=== PATIENT | male | born 1970 | race Caucasian/White ===

== ENCOUNTER 2022-06-15 20:00 | Emergency (ER) | payer OTHER, MEDICAID ==
[~2022-06-15] VITALS: Ht 182.9 cm; Wt 77.6 kg
[2022-06-15 20:18] VITALS: BP 128/77
--- NOTE | 2022-06-15 20:21 | NUR ---
PT TAKEN TO LOBBY.
[2022-06-15] MEDS ORDERED: IBUP-1878 PO (23:25)
[2022-06-15] MEDS ORDERED: HYDR-5080 PO (23:26)
[2022-06-16 00:10] VITALS: BP 120/80
--- NOTE | 2022-06-16 00:10 | NUR ---
Patient discharged with v/s stable. Written and verbal after care instructions given and explained. Patient alert, oriented and verbalized understanding of instructions. Ambulatory with steady gait. All questions addressed prior to discharge. ID band removed. Patient advised to follow up with PMD. Rx of IBUPROFEN, HYDROCODONE given. Patient educated on indication of medication including possible reaction and side effects. Opportunity to ask questions provided and answered.
== END 2022-06-16 00:10 | disposition home or self-care (01) ==
LOC: MED 20:00
DX: S92.412A Displaced fracture of proximal phalanx of left great toe, initial encounter for closed fracture (principal); Z79.899 Other long term (current) drug therapy; W22.8XXA Striking against or struck by other objects, initial encounter; Y93.89 Activity, other specified; Y92.89 Other specified places as the place of occurrence of the external cause; Y99.8 Other external cause status
CPT/HCPCS: 73630; 99283

== ENCOUNTER 2022-07-15 09:16 | Emergency (ER) | payer OTHER, MEDICAID ==
[~2022-07-15] VITALS: Ht 182.9 cm; Wt 80.7 kg
[~2022-07-15 09:16] MED LIST: HYDR-5080 PO; IBUP-1878 PO
[2022-07-15 09:19] VITALS: BP 134/81
[2022-07-15] MEDS ORDERED: KETOROLAC 15 MG/ML VIAL IM ONE (09:50)
--- NOTE | 2022-07-15 09:58 | NUR ---
52/M PRESENTS TO ED WITH C/O LEFT BIG TOE PAIN X1 MONTH. STATES BEING SEEN HERE LAST MONTH AND HAD DX WITH FRACTURE TO TOE S/P RUNNING INTO A STEP. PATIENT REPORTS HE DID NOT RECEIVE CRUTCHES AND HAS HAD CONTINUED PAIN SINCE. DENIES NEW INJURY OR TRAUMA, TOE APPEARS RED, SWOLLEN AND TENDER. CMS WNL, SENSATION EQUAL BILATERALLY.
[2022-07-15] MEDS ORDERED: IBUP-2213 PO (11:09)
--- NOTE | 2022-07-15 11:35 | NUR ---
PT GIVEN CRUTCHES THAT WERE ADJUSTED TO PT'S SIZE AND HIEGHT. PT SHOWED PROPER DEMONSTRATION ON HOW TO USE THEM AND HAD NO FURTHER QUESTIONS.
[2022-07-15 11:36] VITALS: BP 111/89
--- NOTE | 2022-07-15 11:36 | NUR ---
Patient discharged with v/s stable. Written and verbal after care instructions ABOUT TOE FRACTURE given and explained. Patient alert, oriented and verbalized understanding of instructions. Ambulatory with USE OF CRUTCHES WITH steady gait. All questions addressed prior to discharge. ID band removed. Patient advised to follow up with PMD. Rx of IBUPROFEN 600MG given. Patient educated on indication of medication including possible reaction and side effects. Opportunity to ask questions provided and answered.
== END 2022-07-15 11:36 | disposition home or self-care (01) ==
LOC: MED 09:16
DX: S92.912A Unspecified fracture of left toe(s), initial encounter for closed fracture (principal); X58.XXXA Exposure to other specified factors, initial encounter; Y93.89 Activity, other specified; Y92.89 Other specified places as the place of occurrence of the external cause; Y99.8 Other external cause status
CPT/HCPCS: 73630; 96372; 99283; J1885; Q0092